=== PATIENT | female | born 1960 | race Two or more races ===

== ENCOUNTER 2023-06-04 23:10 | Inpatient (IN) | payer OTHER ==
[~2023-06-04] VITALS: Ht 160 cm; Wt 102.1 kg
[2023-06-05 00:07] LABS: BASOPHILS % (AUTO) 0.4 % (0.0-2.0); EOSINOPHILS # (AUTO) 0.1 K/uL (0.0-0.7); HEMATOCRIT 37 % (33-45); HEMOGLOBIN 12.3 g/dL (11.5-14.8); LYMPHOCYTES # (AUTO) 1.8 K/uL (0.8-4.8); LYMPHOCYTES % (AUTO) 17.4 % (20.0-44.0); MEAN CORPUSCULAR HEMOGLOBIN 31 PG (26.0-33.0); MEAN CORPUSCULAR HGB CONC 34 g/dl (31.0-36.0); MEAN CORPUSCULAR VOLUME 93 fL (82-100); MONOCYTES # (AUTO) 0.6 K/uL (0.1-1.30); MONOCYTES % (AUTO) 5.4 % (2.0-12.0); NEUTROPHILS # (AUTO) 7.8 K/uL (1.8-8.9); NEUTROPHILS % (AUTO) 75.8 % (43.0-81.0); PLATELET COUNT (AUTO) 195 K/uL (150-450); RED BLOOD CELL COUNT(AUTO) 3.91 MIL/uL (4.0-5.2); RED CELL DISTRIBUTION WIDTH 13.8 % (11.5-15.0); WHITE BLOOD COUNT (AUTO) 10.3 K/uL (4.3-11.0)
[2023-06-05 00:18] LABS: INR 1.01 (0.91-1.10); PARTIAL THROMBOPLASTIN TIME 31.2 SEC (24.3-34.3); PROTHROMBIN TIME 10.7 SECS (9.2-11.1)
[2023-06-05 01:30] LABS: CALCIUM, SERUM 9.5 mg/dL (8.5-10.1); CARBON DIOXIDE 30 mmol/L (21-32); CHLORIDE 97 mmol/L (98-107); CREATININE 0.9 mg/dL (0.6-1.3); GLUCOSE 125 mg/dL (74-106); POTASSIUM 3.4 mmol/L (3.5-5.1); SODIUM SERUM 133 mmol/L (136-145); UREA NITROGEN, BLOOD 15 mg/dL (7-18)
[2023-06-05 01:34] LABS: ALANINE AMINOTRANSFERASE 17 U/L (12-78); ALKALINE PHOSPHATASE 121 U/L (46-116); ASPARTATE AMINOTRANSFERASE 10 U/L (15-37); BILIRUBIN,DIRECT 0.1 mg/dL (0.0-0.2); BILIRUBIN,TOTAL 0.5 mg/dL (0.2-1.0); TOTAL PROTEIN, SERUM 7.3 g/dL (6.4-8.2)
[2023-06-05 04:10] VITALS: BP 157/52; TEMP 97.7; O2SAT 98
[2023-06-05 04:28] VITALS: BP 157/52; TEMP 97.7; O2SAT 98
[2023-06-05] MEDS ORDERED: ONDANSETRON HCL/PF 4 MG/2 ML VIAL IVP PRN (05:30)
[2023-06-05] MEDS: POTASSIUM CHLORIDE 20 MEQ TAB.PRT.SR PO ONE (05:50)
[2023-06-05] MEDS: ENOXAPARIN SODIUM 40 MG/0.4 ML DISP.SYRIN SQ SCH (05:53)
[2023-06-05] MEDS: IV NS 0.9% 1,000 ML IV PRN (05:59)
[2023-06-05] MEDS: ACETAMINOPHEN 325 MG TABLET PO PRN (06:03)
[2023-06-05 08:00] VITALS: BP 166/64; TEMP 98.2; O2SAT 99
[2023-06-05] MEDS ORDERED: PANT40TA2 PO (09:59)
[2023-06-05] MEDS ORDERED: GABA300C PO (09:59)
[2023-06-05] MEDS ORDERED: EZET10TA16 PO (09:59)
[2023-06-05] MEDS ORDERED: ASPI-1169 PO (09:59)
[2023-06-05] MEDS ORDERED: ATOR80TA PO (09:59)
[2023-06-05] MEDS ORDERED: CHLO25TA2 PO (09:59)
[2023-06-05] MEDS ORDERED: METO100T14 PO (09:59)
[2023-06-05] MEDS ORDERED: EMPA25TA PO (09:59)
[2023-06-05] MEDS ORDERED: ISOS60TA72 PO (09:59)
[2023-06-05] MEDS ORDERED: LOSA100T31 PO (09:59)
[2023-06-05] MEDS ORDERED: SENN-261 PO (09:59)
[2023-06-05] MEDS ORDERED: CHOL100062 PO (09:59)
[2023-06-05] MEDS ORDERED: HYDR25TA4 PO (09:59)
[2023-06-05] MEDS: VALSARTAN 80 MG TABLET PO SCH (10:31)
[2023-06-05] MEDS: METOPROLOL TARTRATE 25 MG TABLET PO SCH (10:31)
[2023-06-05 11:00] LABS: BASOPHILS # (AUTO) 0.1 K/uL (0.0-0.2); BASOPHILS % (AUTO) 0.8 % (0.0-2.0); EOSINOPHILS # (AUTO) 0.2 K/uL (0.0-0.7); EOSINOPHILS % (AUTO) 1.9 % (0.0-6.0); HEMATOCRIT 37 % (33-45); HEMOGLOBIN 12.5 g/dL (11.5-14.8); LYMPHOCYTES # (AUTO) 1.6 K/uL (0.8-4.8); LYMPHOCYTES % (AUTO) 20.2 % (20.0-44.0); MEAN CORPUSCULAR HEMOGLOBIN 32 PG (26.0-33.0); MEAN CORPUSCULAR HGB CONC 34 g/dl (31.0-36.0); MEAN CORPUSCULAR VOLUME 94 fL (82-100); MONOCYTES # (AUTO) 0.5 K/uL (0.1-1.30); MONOCYTES % (AUTO) 6.3 % (2.0-12.0); NEUTROPHILS # (AUTO) 5.5 K/uL (1.8-8.9); NEUTROPHILS % (AUTO) 70.8 % (43.0-81.0); PLATELET COUNT (AUTO) 193 K/uL (150-450); RED BLOOD CELL COUNT(AUTO) 3.94 MIL/uL (4.0-5.2); RED CELL DISTRIBUTION WIDTH 13.9 % (11.5-15.0); WHITE BLOOD COUNT (AUTO) 7.8 K/uL (4.3-11.0)
[2023-06-05 11:37] LABS: CALCIUM, SERUM 9.5 mg/dL (8.5-10.1); POTASSIUM 3.8 mmol/L (3.5-5.1)
[2023-06-05 11:42] LABS: ALBUMIN 2.8 g/dL (3.4-5.0); BILIRUBIN,TOTAL 0.6 mg/dL (0.2-1.0); MAGNESIUM 1.8 mg/dL (1.8-2.4); PHOSPHORUS 3.5 mg/dL (2.5-4.9)
[2023-06-05 11:50] LABS: THYROID STIMULATING HORMONE 3.227 uIU/mL (0.358-3.74)
[2023-06-05 12:00] VITALS: BP 172/63; TEMP 97.9; O2SAT 97
[2023-06-05 16:00] VITALS: BP 164/57; TEMP 97.7; O2SAT 96
[2023-06-05 20:00] VITALS: BP 169/63; TEMP 98.2; O2SAT 95
[2023-06-05] MEDS: GABAPENTIN 300 MG CAPSULE PO ONE (21:09)
[2023-06-05] MEDS: CHOLECALCIFEROL 1,000 UNIT TABLET (VIT D3) PO SCH (21:09)
[2023-06-05] MEDS: METOPROLOL TARTRATE 50 MG TABLET PO SCH (21:09)
[2023-06-05] MEDS: ATORVASTATIN 40 MG TABLET PO SCH (21:10)
[2023-06-06] VITALS: BP 157/67; TEMP 97.9; O2SAT 96
[2023-06-06 04:00] VITALS: BP 161/59; TEMP 97.7; O2SAT 100
[2023-06-06 07:36] LABS: BASOPHILS # (AUTO) 0.1 K/uL (0.0-0.2); BASOPHILS % (AUTO) 0.6 % (0.0-2.0); EOSINOPHILS # (AUTO) 0.2 K/uL (0.0-0.7); EOSINOPHILS % (AUTO) 1.8 % (0.0-6.0); HEMATOCRIT 37 % (33-45); HEMOGLOBIN 12.5 g/dL (11.5-14.8); LYMPHOCYTES % (AUTO) 22.2 % (20.0-44.0); MEAN CORPUSCULAR HEMOGLOBIN 32 PG (26.0-33.0); MEAN CORPUSCULAR HGB CONC 34 g/dl (31.0-36.0); MEAN CORPUSCULAR VOLUME 94 fL (82-100); MONOCYTES # (AUTO) 0.7 K/uL (0.1-1.30); NEUTROPHILS # (AUTO) 6.1 K/uL (1.8-8.9); NEUTROPHILS % (AUTO) 67.4 % (43.0-81.0); PLATELET COUNT (AUTO) 191 K/uL (150-450); RED BLOOD CELL COUNT(AUTO) 3.92 MIL/uL (4.0-5.2); RED CELL DISTRIBUTION WIDTH 13.9 % (11.5-15.0); WHITE BLOOD COUNT (AUTO) 9.1 K/uL (4.3-11.0)
[2023-06-06 07:57] LABS: CALCIUM, SERUM 9.7 mg/dL (8.5-10.1); CREATININE 0.7 mg/dL (0.6-1.3); MAGNESIUM 1.7 mg/dL (1.8-2.4); PHOSPHORUS 3.2 mg/dL (2.5-4.9); POTASSIUM 3.7 mmol/L (3.5-5.1)
[2023-06-06 08:00] VITALS: BP 160/51; TEMP 98; O2SAT 97
[2023-06-06] MEDS: EZETIMIBE 10 MG TABLET PO SCH (08:46)
[2023-06-06] MEDS: PANTOPRAZOLE 40 MG TABLET.DR PO SCH (08:46)
[2023-06-06] MEDS: GABAPENTIN 300 MG CAPSULE PO SCH (08:47)
[2023-06-06] MEDS: HYDROCHLOROTHIAZIDE 25 MG TABLET PO SCH (08:47)
[2023-06-06] MEDS: ISOSORBIDE MONONITRATE (30MG) 30 MG TAB.SR.24H PO SCH (08:48)
[2023-06-06] MEDS: VALSARTAN 80 MG TABLET PO SCH (08:49)
[2023-06-06] MEDS: ASPIRIN 81 MG TAB.CHEW PO SCH (08:52)
[2023-06-06] MEDS ORDERED: LOSARTAN POTASSIUM 50 MG TABLET PO SCH (09:00)
[2023-06-06] MEDS: METOPROLOL TARTRATE 50 MG TABLET PO SCH (09:00)
[2023-06-06] MEDS ORDERED: HYDROCHLOROTHIAZIDE 25 MG TABLET PO SCH (09:00)
[2023-06-06] MEDS: EMPAGLIFLOZIN 25 MG TABLET PO SCH (09:02)
[2023-06-06] MEDS: MAGNESIUM OXIDE 400 MG TABLET PO ONE (10:30)
[2023-06-06 12:00] VITALS: BP 141/58; TEMP 98.2; O2SAT 95
[2023-06-06 16:00] VITALS: BP 145/66; TEMP 98.5; O2SAT 97
[2023-06-06] MEDS ORDERED: MAGNESIUM OXIDE 400 MG TABLET PO SCH (17:00)
[2023-06-06] MEDS: POLYETHYLENE GLYCOL 3350 17 GM POWD.PACK PO ONE (17:39)
[2023-06-06 20:00] VITALS: BP 134/69; TEMP 99; O2SAT 94
[2023-06-07] VITALS: BP 136/65; TEMP 99; O2SAT 96
[2023-06-07 04:00] VITALS: BP 134/60; TEMP 98.6; O2SAT 95
[2023-06-07 07:30] VITALS: BP 118/50; TEMP 97.9; O2SAT 96
[2023-06-07 07:59] LABS: BASOPHILS # (AUTO) 0.1 K/uL (0.0-0.2); BASOPHILS % (AUTO) 0.5 % (0.0-2.0); EOSINOPHILS # (AUTO) 0.2 K/uL (0.0-0.7); EOSINOPHILS % (AUTO) 1.5 % (0.0-6.0); HEMATOCRIT 38 % (33-45); HEMOGLOBIN 12.8 g/dL (11.5-14.8); LYMPHOCYTES # (AUTO) 2.1 K/uL (0.8-4.8); LYMPHOCYTES % (AUTO) 20.4 % (20.0-44.0); MEAN CORPUSCULAR HEMOGLOBIN 32 PG (26.0-33.0); MEAN CORPUSCULAR HGB CONC 34 g/dl (31.0-36.0); MEAN CORPUSCULAR VOLUME 93 fL (82-100); MONOCYTES # (AUTO) 0.8 K/uL (0.1-1.30); MONOCYTES % (AUTO) 7.6 % (2.0-12.0); NEUTROPHILS # (AUTO) 7.1 K/uL (1.8-8.9); PLATELET COUNT (AUTO) 195 K/uL (150-450); RED BLOOD CELL COUNT(AUTO) 4.07 MIL/uL (4.0-5.2); RED CELL DISTRIBUTION WIDTH 13.6 % (11.5-15.0); WHITE BLOOD COUNT (AUTO) 10.2 K/uL (4.3-11.0)
[2023-06-07] MEDS: SENNOSIDES 8.6 MG TABLET PO PRN (08:20)
[2023-06-07 09:12] LABS: CALCIUM, SERUM 9.8 mg/dL (8.5-10.1); CREATININE 0.9 mg/dL (0.6-1.3); MAGNESIUM 1.7 mg/dL (1.8-2.4); PHOSPHORUS 4.1 mg/dL (2.5-4.9); POTASSIUM 3.7 mmol/L (3.5-5.1)
[2023-06-07] MEDS ORDERED: IOHEXOL-350 100 ML VIAL IV ONE (12:59)
[2023-06-07] MEDS ORDERED: methylPREDNISolone SOD SUCC 125 MG/2ML VIAL ONE (13:01)
[2023-06-07] MEDS ORDERED: IV NS 0.9% 250 ML IV ONE (13:01)
[2023-06-07] MEDS ORDERED: CT SWABBABLE VALVE TRANS SET 1 EA INFUS.SET MC ONE (13:01)
[2023-06-07] MEDS ORDERED: NITROGLYCERIN 0.4 MG/TAB BOTTLE ONE (13:02)
[2023-06-07] MEDS ORDERED: METOPROLOL TARTRATE INJ 5 MG/5 ML AMPUL IVP ONE (13:30)
[2023-06-07] MEDS ORDERED: IV NS 0.9% 500 ML IV PRN (13:30)
[2023-06-07] MEDS: NITROGLYCERIN 0.4 MG/TAB BOTTLE SL ONE (13:49)
[2023-06-07] MEDS: GABAPENTIN 300 MG CAPSULE PO SCH (13:50)
[2023-06-07] MEDS: MAGNESIUM OXIDE 400 MG TABLET PO ONE (15:11)
[2023-06-07 16:00] VITALS: BP 133/54; TEMP 98.4; O2SAT 96
[2023-06-07] MEDS ORDERED: VALS80TA31 PO (16:46)
[2023-06-07] MEDS ORDERED: METO50TA16 PO (16:46)
== END 2023-06-07 18:10 | disposition home or self-care (01) | DRG 190 ==
LOC: ER 23:19 → TELE 06-05 03:00
PROVIDERS: ADMIT Student in an Organized Health Care Education/Training Program; ATTEND Student in an Organized Health Care Education/Training Program
DX: I25.10 Atherosclerotic heart disease of native coronary artery without angina pectoris (principal); I21.4 Non-ST elevation (NSTEMI) myocardial infarction; E44.0 Moderate protein-calorie malnutrition; E11.40 Type 2 diabetes mellitus with diabetic neuropathy, unspecified; E87.1 Hypo-osmolality and hyponatremia; E78.5 Hyperlipidemia, unspecified; I10 Essential (primary) hypertension; Z95.5 Presence of coronary angioplasty implant and graft; Z68.41 Body mass index [BMI] 40.0-44.9, adult; E87.6 Hypokalemia; Z79.82 Long term (current) use of aspirin; E66.9 Obesity, unspecified
CPT/HCPCS: 36415; 70450-TC; 71045-TC; 75574; 80048-TC; 80053-TC; 80061-TC; 80076-TC; 83735-TC; 84100-TC; 84439-TC; 84443-TC; 84484-TC; 85025-TC; 85730-TC; 93307-TC; A4223; G0378; J1650; J2930; J7030; J7050; Q9967